=== PATIENT | female | born 1960 | race Caucasian/White ===

== ENCOUNTER 2025-03-02 11:21 | Emergency (ER) | payer OTHER, SELFPAY ==
[2025-03-02 11:34] VITALS: BP 121/73; PULSE 66; RESP 16; TEMP 36.6; O2SAT 97
--- NOTE | 2025-03-02 11:51 | ED.EAR ---
HPI - Ear Problem General Chief complaint: Ear Stated complaint: FB R EAR Time Seen by Provider: 03/02/25 12:20 Source: patient and RN notes reviewed Mode of arrival: ambulatory Limitations: no limitations History of Present Illness HPI Narrative: 64-year-old female presents with concern for a foreign body in her right ear. She reports a screen from a near PA's speaker came off and she thinks it is in her ear. She denies any decreased hearing, drainage from the ear. MD Complaint: ear pain Related Data Home Medications ?Medication ?Instructions ?Recorded ?Confirmed ?Last Taken ?Type No Home Medications 03/02/25 03/02/25 Unknown History Allergies Allergy/AdvReac Type Severity Reaction Status Date / Time amphetamine (From Adderall) AdvReac Severe dry heaves Verified 03/02/25 11:32 dextroamphetamine (From AdvReac Severe dry heaves Verified 03/02/25 11:32 Adderall) Review of Systems Review of Systems: ENT: Reports possible foreign body in the left ear. Denies ear drainage All systems reviewed & are unremarkable except as noted in HPI and below PMFSH Past Medical History Medical History (Updated 03/02/25 @ 12:33 by Mayela Herman NP) Vitamin D deficiency Vitamin B12 deficiency Anemia Hyperlipidemia Abnormal EKG Periodic health assessment, general screening, adult Surgical History Surgical History (Updated 03/02/24 @ 11:42 by Viviana Arellano PA-C) History of spinal fusion History of hysterectomy History of cataract extraction left 2022, right 2016 History of bilateral total hip arthroplasty 2021, 2022 Social History Social History Smoking status: Never smoker Second hand tobacco smoke exposure: No Alcohol intake: never Substance use: never Substance use type: does not use Lack of Transportation: No Lack of Food: Never True Current Housing: I Have Housing Concerned About Future Housing: No Difficulty Paying Gas/Electric Bills: No Difficulty Paying for Meds: No Currently Unemployed: No Education: High School Diploma/GED Difficulty w/ Childcare or Family Care: No Living arrangements: with family Occupation/Education: occupation Gender identity (if verbalized by the patient): Female Sexual Orientation (if Verbalized by the Patient): Straight or Heterosexual Comments At time of signature, agree with nursing past medical, surgical, social and family history. There is no relevant family history pertinent to the presenting complaint Exam Narrative: GENERAL: Well-appearing, well-nourished, and in no acute distress. HEAD: Normocephalic EYES: PERRLA, conjunctivae clear ENT: Nares clear. Mucous membranes moist. TM pearly warren with sharp light reflex bilaterally; no tragal tenderness and no foreign body noted. NECK: Supple. CHEST: No respiratory distress, speaks in full sentences. HEART: Regular rate and rhythm. SKIN: Warm, dry, no rash. NEURO: Alert and oriented x3. PSYCH: Normal mood and affect Course Course Emergency Course: Patient is aware of diagnosis, understands and agrees to treatment plan. Anticipatory guidance given. Patient agrees to follow-up as directed and is aware of reasons to seek care at the emergency department. Portions of this record may have been created with voice recognition software Level of Care: [facility] Visit Vital Signs Vital signs: Vital Signs Temperature 97.8 F 03/02/25 11:34 Pulse Rate 66 03/02/25 11:34 Respiratory Rate 16 03/02/25 11:34 Blood Pressure 121/73 03/02/25 11:34 Pulse Oximetry 97 03/02/25 11:34 Temperature 97.8 F 03/02/25 11:34 Pulse Rate 66 03/02/25 11:34 Respiratory Rate 16 03/02/25 11:34 Blood Pressure 121/73 03/02/25 11:34 Pulse Oximetry 97 03/02/25 11:34 Reviewed. Procedures Other Procedure Procedure 1: Other Procedure: Right ear flushed with warm water, patient tolerated well, no side effects. Medical Decision Making MDM Narrative Medical decision making narrative: I evaluated this in the [facility]. History is obtained from patient who is an independent historian and physical exam was performed.? Available medical records were reviewed. ? Exam findings and relevant testing show no acute concerns or changes; patient is non-toxic appearing and is in no distress. Differential diagnosis considered: Aguilar virus, strep pharyngitis, allergic rhinitis, upper respiratory tract infection, sinusitis, rhinosinusitis, nasopharyngitis. viral pharyngitis, otitis media, otitis externa, otitis effusion, cerumen impaction, foreign body. Exam findings show no acute concerns or changes; patient is non-toxic appearing and is in no distress. Patient is appropriate for outpatient treatment and follow-up. ? Differential diagnosis and treatment plan were discussed with the patient. Patient agrees with discussion and after shared medical decision making agrees with plan of care. All questions were answered to the patient's satisfaction. Patient is appropriate for outpatient treatment and follow-up. Vital Signs Vital Signs: Vital Signs Temperature 97.8 F 03/02/25 11:34 Pulse Rate 66 03/02/25 11:34 Respiratory Rate 16 03/02/25 11:34 Blood Pressure 121/73 03/02/25 11:34 Pulse Oximetry 97 03/02/25 11:34 Temperature 97.8 F 03/02/25 11:34 Pulse Rate 66 03/02/25 11:34 Respiratory Rate 16 03/02/25 11:34 Blood Pressure 121/73 03/02/25 11:34 Pulse Oximetry 97 03/02/25 11:34 Critical Care Time Critical Care Time Critical Care Time: No Discharge Plan Discharge Clinical Impression: Discomfort of right ear Patient Disposition: Home Condition: Stable Instructions: General Patient Instructions Additional Instructions: 1) Please follow-up with your primary care doctor give any new symptoms or concerns. 2) If you have any urgent concerns please go to the ER. Patient Language: Hebrew Prescriptions: No Action No Home Medications Follow-up/Referrals: Bryce Luna MD [Primary Care Provider] - Time of Disposition: 12:33
== END 2025-03-02 12:36 | disposition home or self-care (01) ==
PROVIDERS: Emergency Provider Nurse Practitioner; PCP Family Medicine
DX: H92.01 Otalgia, right ear (principal)
CPT/HCPCS: 99211; G0463